=== PATIENT | male | born 1940 | race Caucasian/White ===

== ENCOUNTER 2021-05-20 12:53 | Inpatient (IN) ==
[2021-05-20] MEDS ORDERED: Naloxone 0.4 MG/ML INJ IVP PRN (16:03)
[2021-05-20] MEDS ORDERED: Ipratropium 1 PUFF INHALER IH PRN (17:10)
[2021-05-20] MEDS ORDERED: Metoprolol XL (24 HR) Succ 50 MG TAB.ER.24H PO SCH (17:30)
[2021-05-20] MEDS ORDERED: cefTRIAXone 2,000 MG in 0.9 % Sodium Chloride Mini Bag 100 ML IVPB SCH (18:00)
[2021-05-20] MEDS: DilTIAZem 50 MG/50 ML IV.SOLN IVC SCH (18:36)
[2021-05-20] MEDS: Budesonide/Formoterol 80/4.5 1 PUFF INH IH SCH (22:01)
[2021-05-21 01:01] LABS: Basophils % 0.1 %; Hematocrit 37.1 % (37.5-50.1); Immature Granulocytes % 0.6 % (0-4); Lymphocytes # 0.7 K/mcL (0.6-4.6); Lymphocytes % 5.6 %; Mean Corpuscular HGB Conc 32.3 g/dL (31.6-35.5); Mean Corpuscular Volume 92.8 fL (83.0-100.0); Mean Platelet Volume 9.8 fL (9.4-12.4); Monocytes # 0.2 K/mcL (0.0-1.3); Monocytes % 1.9 %; Neutrophils # 10.6 K/mcL (1.6-8.9); Platelet Count 239 K/mcL (140-400); Red Cell Distribution Width 13.6 % (11.5-14.5); Segmented Neutrophils % 91.8 %; White Blood Count 11.6 K/mcL (4.3-11.1)
[2021-05-21 01:24] LABS: BUN/Creatinine Ratio 23 (6-26); Blood Urea Nitrogen 30 mg/dL (8-23); Carbon Dioxide 19 mEq/L (23-29); Chloride 107 mEq/L (98-107); Glucose 131 mg/dL (70-105); Osmolality,Calculated 286 (280-300); Potassium 4.2 mEq/L (3.5-5.1); Sodium 134 mEq/L (136-145); eGFR For African Americans > 60 (> 60); eGFR For Non-African Americans 53 (> 60)
[2021-05-21] MEDS: DilTIAZem 50 MG/50 ML IV.SOLN IVC SCH ×3 (02:22→23:58)
[2021-05-21] MEDS: Budesonide/Formoterol 80/4.5 1 PUFF INH IH SCH ×2 (08:02→20:31)
[2021-05-21] MEDS: Dexamethasone Sodium Phos/PF 10 MG/ML VIAL IVP SCH (08:33)
[2021-05-21] MEDS: Metoprolol XL (24 HR) Succ 50 MG TAB.ER.24H PO SCH (08:34)
[2021-05-21] MEDS: Apixaban 5 MG TABLET PO SCH ×2 (08:35→19:45)
[2021-05-21 08:38] LABS: Troponin I 0.15 ng/mL (< 0.04)
[2021-05-21] MEDS ORDERED: Aspirin 81 MG TAB.CHEW PO SCH (09:00)
[2021-05-21] MEDS ORDERED: Perflutren Lipid Microsphere 1.3 ML in 0.9 % Sodium Chloride 8.7 ML IVP PRN (11:40)
[2021-05-22 04:08] LABS: Basophils % 0.1 %; Hematocrit 34.5 % (37.5-50.1); Hemoglobin 11.3 g/dL (12.9-16.9); Immature Granulocytes % 0.6 % (0-4); Lymphocytes # 0.9 K/mcL (0.6-4.6); Lymphocytes % 5.5 %; Mean Corpuscular HGB Conc 32.8 g/dL (31.6-35.5); Mean Corpuscular Hemoglobin 30.8 pg (28.0-33.3); Mean Platelet Volume 10.4 fL (9.4-12.4); Monocytes # 0.6 K/mcL (0.0-1.3); Monocytes % 3.6 %; Neutrophils # 15.3 K/mcL (1.6-8.9); Platelet Count 278 K/mcL (140-400); Red Blood Count 3.67 M/mcL (4.19-5.50); Red Cell Distribution Width 13.5 % (11.5-14.5); Segmented Neutrophils % 90.2 %
[2021-05-22 04:10] LABS: BUN/Creatinine Ratio 31 (6-26); Blood Urea Nitrogen 40 mg/dL (8-23); Calcium 8.2 mg/dL (8.6-10.3); Carbon Dioxide 21 mEq/L (23-29); Chloride 110 mEq/L (98-107); Glucose 130 mg/dL (70-105); Osmolality,Calculated 288 (280-300); Potassium 4.5 mEq/L (3.5-5.1); Sodium 133 mEq/L (136-145); eGFR For African Americans > 60 (> 60); eGFR For Non-African Americans 53 (> 60)
[2021-05-22] MEDS: Budesonide/Formoterol 80/4.5 1 PUFF INH IH SCH ×2 (07:42→20:24)
[2021-05-22] MEDS: Apixaban 5 MG TABLET PO SCH ×2 (09:43→20:35)
[2021-05-22] MEDS: Furosemide 40 MG TABLET PO SCH (09:43)
[2021-05-22] MEDS: lisinopriL 10 MG TABLET PO SCH (09:44)
[2021-05-22] MEDS: Metoprolol XL (24 HR) Succ 50 MG TAB.ER.24H PO SCH (09:44)
[2021-05-22] MEDS: Dexamethasone Sodium Phos/PF 10 MG/ML VIAL IVP SCH (09:44)
[2021-05-22] MEDS: Tiotropium 10 INH DOSE IH SCH (15:02)
[2021-05-22] MEDS ORDERED: Saline Nasal Spray 44 ML BOTTLE NS PRN (16:51)
[2021-05-23] MEDS: Budesonide/Formoterol 80/4.5 1 PUFF INH IH SCH ×2 (08:03→20:12)
[2021-05-23] MEDS: Tiotropium 10 INH DOSE IH SCH (08:13)
[2021-05-23 08:14] LABS: Basophils % 0.1 %; Hematocrit 34.2 % (37.5-50.1); Hemoglobin 10.9 g/dL (12.9-16.9); Immature Granulocytes % 0.7 % (0-4); Lymphocytes # 0.8 K/mcL (0.6-4.6); Lymphocytes % 5.1 %; Mean Corpuscular HGB Conc 31.9 g/dL (31.6-35.5); Mean Corpuscular Hemoglobin 29.5 pg (28.0-33.3); Mean Corpuscular Volume 92.7 fL (83.0-100.0); Mean Platelet Volume 10.1 fL (9.4-12.4); Monocytes # 0.5 K/mcL (0.0-1.3); Monocytes % 2.9 %; Neutrophils # 14.8 K/mcL (1.6-8.9); Platelet Count 319 K/mcL (140-400); Red Blood Count 3.69 M/mcL (4.19-5.50); Red Cell Distribution Width 13.4 % (11.5-14.5); Segmented Neutrophils % 91.2 %; White Blood Count 16.3 K/mcL (4.3-11.1)
[2021-05-23 08:32] LABS: BUN/Creatinine Ratio 37 (6-26); Blood Urea Nitrogen 45 mg/dL (8-23); Calcium 8.2 mg/dL (8.6-10.3); Carbon Dioxide 23 mEq/L (23-29); Chloride 105 mEq/L (98-107); Glucose 110 mg/dL (70-105); Osmolality,Calculated 296 (280-300); Potassium 4.6 mEq/L (3.5-5.1); Sodium 137 mEq/L (136-145); eGFR For African Americans > 60 (> 60); eGFR For Non-African Americans 57 (> 60)
[2021-05-23] MEDS: Furosemide 40 MG TABLET PO SCH (09:04)
[2021-05-23] MEDS: Dexamethasone Sodium Phos/PF 10 MG/ML VIAL IVP SCH (09:04)
[2021-05-23] MEDS: Apixaban 5 MG TABLET PO SCH ×2 (09:05→21:12)
[2021-05-23] MEDS: Metoprolol XL (24 HR) Succ 50 MG TAB.ER.24H PO SCH (09:05)
[2021-05-23] MEDS: lisinopriL 10 MG TABLET PO SCH (09:05)
[2021-05-23] MEDS ORDERED: DilTIAZem CD (24hr) 240 MG CAP.ER.24H PO ONE (11:47)
[2021-05-23 20:15] VITALS: O2SAT 97
[2021-05-24 01:44] LABS: Basophils % 0.1 %; Hematocrit 31.1 % (37.5-50.1); Hemoglobin 9.8 g/dL (12.9-16.9); Immature Granulocytes % 1.4 % (0-4); Lymphocytes # 0.9 K/mcL (0.6-4.6); Lymphocytes % 5.6 %; Mean Corpuscular HGB Conc 31.5 g/dL (31.6-35.5); Mean Corpuscular Hemoglobin 29.3 pg (28.0-33.3); Mean Corpuscular Volume 92.8 fL (83.0-100.0); Mean Platelet Volume 9.9 fL (9.4-12.4); Monocytes # 0.6 K/mcL (0.0-1.3); Monocytes % 3.4 %; Neutrophils # 14.8 K/mcL (1.6-8.9); Platelet Count 323 K/mcL (140-400); Red Blood Count 3.35 M/mcL (4.19-5.50); Red Cell Distribution Width 13.4 % (11.5-14.5); Segmented Neutrophils % 89.5 %; White Blood Count 16.5 K/mcL (4.3-11.1)
[2021-05-24 02:04] LABS: Calcium 8.1 mg/dL (8.6-10.3); Magnesium 2.1 mg/dL (1.6-2.6); Phosphorous 2.9 mg/dL (2.7-4.5); Potassium 4.7 mEq/L (3.5-5.1)
[2021-05-24 07:59] VITALS: TEMP 97.8
[2021-05-24] MEDS: Apixaban 5 MG TABLET PO SCH (08:08)
[2021-05-24] MEDS: Dexamethasone Sodium Phos/PF 10 MG/ML VIAL IVP SCH (08:08)
[2021-05-24] MEDS: lisinopriL 10 MG TABLET PO SCH (08:09)
[2021-05-24] MEDS: Metoprolol XL (24 HR) Succ 50 MG TAB.ER.24H PO SCH (08:09)
[2021-05-24] MEDS: Furosemide 40 MG TABLET PO SCH (08:09)
[2021-05-24] MEDS: Budesonide/Formoterol 80/4.5 1 PUFF INH IH SCH (08:37)
[2021-05-24] MEDS: Tiotropium 10 INH DOSE IH SCH (08:40)
[2021-05-24] MEDS ORDERED: DilTIAZem CD (24hr) 300 MG CAP.ER.24H PO SCH (09:00)
[2021-05-24] MEDS ORDERED: DilTIAZem CD (24hr) 240 MG CAP.ER.24H PO SCH ×2 (09:00)
[2021-05-24] MEDS ORDERED: Metoprolol XL (24 HR) Succ 50 MG TAB.ER.24H PO SCH (09:00)
[2021-05-24 10:51] VITALS: BP 152/75; PULSE 100
== END 2021-05-24 13:50 | disposition home or self-care (01) | DRG 177 ==
LOC: 3BNU → SUATTDRO 17:51
PROVIDERS: ADMIT Internal Medicine; ATTEND Internal Medicine